=== PATIENT | male | born 1945 | race Two or more races ===

== ENCOUNTER 2018-01-19 17:59 | Emergency (ER) | payer OTHER ==
[~2018-01-19] VITALS: Ht 167.6 cm; Wt 88.5 kg
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
--- NOTE | 2018-01-19 18:21 | NUR ---
PT TO RADIOLOGY FOR XRAY
--- NOTE | 2018-01-19 18:28 | NUR ---
PT RETURNED FROM RADIOLOGY
[2018-01-19] MEDS ORDERED: ACETAMINOPHEN ES 500 MG TABLET PO ONE (18:30)
[2018-01-19] MEDS ORDERED: TDAP [DIPH/PERTUSSIS/TET] 0.5 ML VIAL IM ONE ×2 (18:30→18:35)
[2018-01-19] MEDS ORDERED: ACETAMINOPHEN ES 500 MG TABLET ONE (18:35)
--- NOTE | 2018-01-19 19:15 | NUR ---
SON AT BEDSIDE
--- NOTE | 2018-01-19 19:16 | NUR ---
GRAPHICS ARTIST ANDI AT BEDSIDE SPEAKING TO PT AND FAMILY REGARDING RESULTS.
--- NOTE | 2018-01-19 19:19 | NUR ---
Patient discharged to home in stable condition. Written and verbal after care instructions given. Patient verbalizes understanding of instruction. ambulatory with a steady gait
[2018-01-19 19:20] VITALS: BP 115/77
== END 2018-01-19 19:21 | disposition home or self-care (01) ==
LOC: ER 18:00
DX: S40.011A Contusion of right shoulder, initial encounter (principal); S70.02XA Contusion of left hip, initial encounter; S60.511A Abrasion of right hand, initial encounter; V79.9XXA Bus occupant (driver) (passenger) injured in unspecified traffic accident, initial encounter; Y93.89 Activity, other specified; Y92.413 State road as the place of occurrence of the external cause; Y99.8 Other external cause status
CPT/HCPCS: 73030-TC; 73521; 90715; A4606; Z7610